=== PATIENT | female | born 1970 | race Caucasian/White ===

== ENCOUNTER 2024-09-02 11:33 | Outpatient (CLI) | payer OTHER, SELFPAY ==
--- NOTE | 2024-09-02 11:40 | XR_ITS ---
WS: [id number] XR lumbar spine 2-3V* [id number] REASON FOR EXAM: M54.50 - Low back pain, unspecified FINDINGS: Minimal rotatory levoscoliosis. Mild straightening of the normal lordosis. No significant vertebral body compression deformity or focal lesion. Intervertebral disc spaces are intact and relatively well preserved. Mild vertebral body osteophytosis L1-L5. Mild degenerative arthropathy in the facet joints L4-S1. XR/XR lumbar spine 2-3V* [id number] IMPRESSION: Minimal degenerative spondylosis.
--- NOTE | 2024-09-02 11:40 | XR_ITS ---
WS: [id number] XR coccyx 2V [id number] REASON FOR EXAM: M53.3 - Sacrococcygeal disorders, not elsewhere classified FINDINGS: There is posterior displacement of the third coccygeal segment in relation to the second coccygeal segment. There is no history of recent trauma and this may represent an old injury. In the setting of acute trauma this would have to be considered an acute injury. No other significant abnormality of the sacrum or coccyx is noted. The sacroiliac joints are normal. XR/XR coccyx 2V [id number] IMPRESSION: Listhesis of the distal coccyx as above.
== END 2024-09-02 11:34 | disposition home or self-care (01) ==
LOC: RAD 11:37
PROVIDERS: Visit Provider Nurse Practitioner
DX: M53.3 Sacrococcygeal disorders, not elsewhere classified (principal); M47.897 Other spondylosis, lumbosacral region; R93.7 Abnormal findings on diagnostic imaging of other parts of musculoskeletal system; M25.78 Osteophyte, vertebrae
CPT/HCPCS: 72100; 72220

== ENCOUNTER → 2024-09-25 14:42 | Outpatient (BNVA) | payer OTHER, SELFPAY | PROVIDERS: Visit Provider Orthopaedic Surgery | DX: S33.2XXA Dislocation of sacroiliac and sacrococcygeal joint, initial encounter (principal); S32.2XXA Fracture of coccyx, initial encounter for closed fracture; X58.XXXA Exposure to other specified factors, initial encounter | CPT/HCPCS: 72220 ==

== ENCOUNTER → 2024-11-06 13:37 | Outpatient (BNVA) | payer OTHER, SELFPAY | PROVIDERS: Visit Provider Orthopaedic Surgery | DX: S32.2XXA Fracture of coccyx, initial encounter for closed fracture (principal); X58.XXXA Exposure to other specified factors, initial encounter | CPT/HCPCS: 72220 ==